=== PATIENT | female | born 2000 | race Caucasian/White ===

== ENCOUNTER 2023-10-30 09:12 | Emergency (ER) | payer OTHER, SELFPAY ==
[2023-10-30 09:12] VITALS: BMI 42.0
[2023-10-30 09:13] VITALS: BP 163/99
[2023-10-30] MEDS: NSS 1000 IV (09:55)
[2023-10-30] MEDS: TORADOL 15 MG IV (09:55)
[2023-10-30] MEDS: ZOFRAN 4 MG IV (09:55)
--- NOTE | 2023-10-30 10:08 | ED.GENMED ---
History of Present Illness
General
Chief Complaint: Back Pain
Time Seen by Provider: 10/30/23 09:31
Travel History
Have you had any contact with someone who has COVID-19?: No
Do you have any symptoms of coronavirus? Fever > 100 degrees, chills, cough, shortness of breath, sore throat, loss of taste or smell, muscle aches, or headache?: No
History of Present Illness
History of Present Illness:
23-year-old female with no significant past medical history presents to the emergency department for evaluation of right flank pain beginning last night. Pain is colicky in nature, radiates to the toward the right lower quadrant, associated with
intractable nausea and vomiting. Denies any fevers or chills, denies any lower urinary tract voiding symptoms. No history of intra-abdominal surgery. Last menstrual cycle was 3 weeks ago.
Past History
Past History
ED Past Medical History: Asthma, GERD and Other (Ulcer)
ED Past Surgical History: Other (Endoscopy/colonoscopy, eye surgery)
Social History
Tobacco: Smoker
Alcohol: None
Drug: Marijuana
Personal: Single
Living: with family
Review of Systems
Review of Systems
Allergies reviewed?: Yes
All Other Systems: ROS reviewed and negative except as documented in HPI and ROS
Phy Exam
Physical Exam
Physical Exam:
GEN: Appears uncomfortable, NAD
HEENT: Oral mucosa moist, no scleral icterus
Cardiac: Regular rate and rhythm
Lung: No respiratory distress, no tachypnea
Abdomen: Soft, nontender, no focal tenderness or rigidity
MSK: No gross deformity or injuries
Skin: Good color, no pallor or jaundice, no rashes
Neuro: AO x3, moves all extremities freely
Psych: Calm, cooperative
Course
Orders/Labs/Results
Orders:
Orders
10/30/23 09:43
0.9% Sodium Chloride 1000 ml [Nss] 1,000 ml IV BOLUS
Ketorolac [Toradol] 15 mg IV NOW STA
Ondansetron Injectable [Zofran] 4 mg IV NOW STA
10/30/23 09:44
Test Result ONCE
10/30/23 09:45
CT Abd/pel Without Iv Or Oral Urgent
Comment:
Reason For Exam: R flank pain
10/30/23 10:02
Complete Blood Count/With Diff Urgent
Comprehensive Metabolic Panel Urgent
HCG, Serum Qualitative Screen Urgent
10/30/23 10:11
Urinalysis Reflex To Culture Urgent
Date Specimen was Collected: 10/30/23
Time Specimen was Collected: 09:46
Urine Microscopic Reflex Cult Urgent
Abnormal Lab Results
10/30/23 10/30/23
10:02 10:11
WBC 20.1 H 10^3/uL
(4.8-10.8)
RDW 14.6 H %
(11.5-14.5)
MPV 10.7 H fL
(7.4-10.4)
Abs Immat Gran (auto) 0.1 H 10^3/uL
(0-0.05)
Absolute Neuts (auto) 17.3 H 10^3/uL
(1.4-6.5)
Absolute Monos (auto) 0.7 H 10^3/uL
(0.1-0.6)
Neutrophils % 86.2 H %
(42.2-75.2)
Lymphocytes % 9.4 L %
(20.5-51.1)
Chloride 109 H mmol/L
(98-107)
Glucose 127 H mg/dl
(70-99)
ALT 36 H U/L
(0-35)
Ur Occult Blood Reflex 4+ A
(Negative)
Leukocyte Esterase Rfl Trace A
(Negative)
Urine RBC 70-80 A /HPF
(0-2)
Urine Bacteria (Reflex) Few A
(Negative)
Urine Albumin (Reflex) 1+ A
(Neg - Trace)
10/30/23 10:02
10/30/23 10:02
Vital Signs
Initial and Last Documented VS:
Initial Vital Signs
Temp Pulse Resp BP Pulse Ox
99.2 F 104 18 163/99 96
10/30/23 09:13 10/30/23 09:13 10/30/23 09:13 10/30/23 09:13 10/30/23 09:13
Last Documented Vital Signs
Temp Pulse Resp BP Pulse Ox
98.2 F 90 18 149/84 98
10/30/23 10:58 10/30/23 10:58 10/30/23 10:58 10/30/23 10:58 10/30/23 10:58
MDM/Problems Addressed
MDM/Problems Addressed:
23-hour female presents with right flank pain. She is found to have a proximal right ureteral stone. She does have significant leukocytosis however I suspect this is stress-induced as well as secondary to hemoconcentration in the setting of
intractable vomiting. Urinalysis is not consistent with UTI. Her pain resolved after IV Toradol. At this point she is suitable for discharge to home. I did discuss the case with on-call urology who will make arrangements to see the patient in
the office tomorrow for planned intervention later in the week if the symptoms or not improving. Patient is comfortable with this plan, strict ED return parameters discussed
*Critical Care Note
Total Time (30-74mins, 75-104mins- exclusive of procedures): Not Applicable
ED Attending Note
-
Portions of this chart may have been created with voice recognition software.� Occasional wrong word or��sound alike� substitutions may have occurred due to the inherent limitations of voice recognition software.
Discharge Plan
Departure
Patient Disposition: Home (Routine Discharge)
Date of Disposition: 10/30/23
Time of Disposition: 10:57
Patient with high blood pressure during this ER visit?: No
Discharge Problem:
Ureterolithiasis
Instructions: Kidney Stones (DC)
Prescriptions:
New
ketorolac 10 mg tablet
10 mg PO Q6H PRN (Reason: Pain) 5 Days Qty: 20 0RF
oxycodone 5 mg tablet
5 mg PO Q8H PRN (Reason: Pain) Qty: 10 0RF
ondansetron 4 mg tablet,disintegrating
4 mg PO TIDPRN PRN (Reason: nausea/vomiting) Qty: 10 0RF
No Action
albuterol sulfate [Proventil HFA] 90 MCG/PUFF HFA aerosol inhaler
1 puff inhalation Q4HPRN PRN (Reason: shortness of breath) Qty: 1 0RF
pantoprazole 40 MG tablet,delayed release (DR/EC)
40 mg PO DAILY Qty: 30 0RF
Referrals:
Joel Zhang MD [Active] - (Call today, request 1pm appointment tomorrow, make sure to say 'OK PER DR ZHANG')
[facility]Bonnie Narayanan CRNP [Family Provider] -
Activity Restrictions/Additional Instructions:
If you develop a fever or uncontrolled pain, return to the ER
Interventions
Interventions:
*Risk Screen - Suicide Last Done: 10/30/23 09:50
*General Assessment Last Done: 10/30/23 09:50
*Neglect/Abuse Screening Last Done: 10/30/23 09:50
*ED COVID-19 Vaccine History Last Done: 10/30/23 09:18
*Nursing Disposition Last Done: 10/30/23 12:32
ED-Musculoskeletal Assessment Last Done: 10/30/23 09:50
Discharge Date and Time
Discharge Date/Time: 10/30/23 12:33
[2023-10-30 10:17] LABS: % Basophils 0.2 % (0-2); % Eosinophils 0.1 % (0-6); % Immature Granulocytes 0.5 % (0-0.5); % Lymphocytes 9.4 % (20.5-51.1); % Monocytes 3.6 % (1.7-9.3); % Neutrophils 86.2 % (42.2-75.2); Absolute Immature Granulocytes 0.1 10^3/uL (0-0.05); Absolute Lymphocytes 1.9 10^3/uL (1.2-3.4); Absolute Monocytes 0.7 10^3/uL (0.1-0.6); Absolute Neutrophils 17.3 10^3/uL (1.4-6.5); Hematocrit 44.8 % (37.0-47.0); Hemoglobin 14.8 g/dL (12.0-16.0); Mean Corpuscular Hgb 28.2 pg (27.0-31.0); Mean Corpuscular Volume 85.3 fL (81.0-99.0); Mean Platelet Volume 10.7 fL (7.4-10.4); Nucleated Red Blood Cells % 0 %; Platelet Count 364 10^3/uL (130-400); Red Blood Cell Count 5.25 10^6/uL (4.20-5.40); Red Cell Dist. Width 14.6 % (11.5-14.5); White Blood Cell Count 20.1 10^3/uL (4.8-10.8)
[2023-10-30 10:18] LABS: HCG, Serum Qualitative Screen Negative
[2023-10-30 10:19] LABS: Urine Albumin 1+ (Neg - Trace); Urine Bilirubin Negative (Negative); Urine Character Slightly Cloudy (Clear); Urine Color Yellow; Urine Glucose Negative (Negative); Urine Ketone Negative (Negative); Urine Leukocyte Trace (Negative); Urine Nitrite Negative (Negative); Urine Occult Blood 4+ (Negative); Urine Specific Gravity 1.015 (<1.030); Urine Urobilinogen Negative (Neg - 1+)
[2023-10-30 10:20] LABS: ALT (SGPT) 36 U/L (0-35); AST (SGOT) 31 U/L (14-36); Alkaline Phosphatase 126 U/L (38-126); Blood Urea Nitrogen 14 mg/dl (7-17); Calcium 9.3 mg/dl (8.4-10.2); Carbon Dioxide 25 mmol/L (22-30); Chloride 109 mmol/L (98-107); Estimated Creatinine Clearance > 125 ml/min; Glucose 127 mg/dl (70-99); Potassium 4.2 mmol/L (3.5-5.1); Sodium 139 mmol/L (135-145); Total Bilirubin 0.5 mg/dl (0.2-1.3); Total Protein 7.8 g/dl (6.3-8.2); eGFR > 60.00
[2023-10-30 10:30] LABS: Urine Squamous Cell 16-20 /LPF (Few)
[2023-10-30 10:31] LABS: Urine Mucus Few
[2023-10-30 10:32] LABS: Urine Bacteria Few (Negative); Urine Red Blood Cell 70-80 /HPF (0-2); Urine White Cell 0-2 /HPF (0-5)
[2023-10-30 10:58] VITALS: BP 149/84
== END 2023-10-30 12:33 | disposition home or self-care (01) ==
LOC: EMR 09:12
PROVIDERS: Physician Assistant; EMERGENCY PHYSICIAN Emergency Medicine; FAMILY PHYSICIAN Nurse Practitioner Family
DX: N13.2 Hydronephrosis with renal and ureteral calculous obstruction (principal); J45.909 Unspecified asthma, uncomplicated; K21.9 Gastro-esophageal reflux disease without esophagitis; F17.200 Nicotine dependence, unspecified, uncomplicated
CPT/HCPCS: 99284; 96374; 96375; 96361; 74176; 80053; 81003; 81015; 84703; 85025

== ENCOUNTER 2023-11-10 06:25 | Day surgery (SDC) | payer OTHER, SELFPAY ==
--- NOTE | 2023-11-08 15:27 | PTCARENOTE ---
Abnormal WBC 20.1 on 10/30. Liz at Dr. Zhang's office notified.
--- NOTE | 2023-11-09 10:39 | PTCARENOTE ---
Patient stated she had a recent septal piercing instructed to remove prior to surgery, encouraged to contact sr. social media & mobile manager for assistance
[2023-11-10] VITALS (8 sets, daily range): BP systolic 120–146; BP diastolic 74–96; BMI 41.9
[2023-11-10] MEDS: NORMOSOL-R 1000 IV (13:50)
[2023-11-10] MEDS: Pyridium 200 MG PO (16:55)
[2023-11-10] MEDS: DETROL LA 4 MG PO (16:55)
[2023-11-14 22:05] LABS: Stone Analysis Mass 4 mg
== END 2023-11-10 17:47 | disposition home or self-care (01) ==
LOC: SDS 06:25
PROVIDERS: ATTENDING PHYSICIAN Surgery
DX: N13.2 Hydronephrosis with renal and ureteral calculous obstruction (principal)
CPT/HCPCS: 52356; 74018; 76000; 82365; A4300; C1758; C1769; C1894; C2617

== ENCOUNTER → 2024-04-30 11:12 | Outpatient (REF) | payer OTHER, SELFPAY | LOC: HWRAD 11:12 | PROVIDERS: ATTENDING PHYSICIAN Family Medicine | DX: K80.20 Calculus of gallbladder without cholecystitis without obstruction (principal); K76.0 Fatty (change of) liver, not elsewhere classified; R10.9 Unspecified abdominal pain | CPT/HCPCS: 76700 ==

== ENCOUNTER → 2024-05-09 09:00 | Outpatient (REF) | payer OTHER, SELFPAY | LOC: RAD 09:00 | PROVIDERS: ATTENDING PHYSICIAN Family Medicine | DX: R10.11 Right upper quadrant pain (principal) | CPT/HCPCS: 78226; A9537 ==